=== PATIENT | male | born 1965 | race Caucasian/White ===

== ENCOUNTER 2017-06-20 15:03 | Emergency (ER) | payer OTHER ==
[2017-06-20 17:49] VITALS: BP 143/68
== END 2017-06-20 17:49 | disposition home or self-care (01) ==
LOC: ED 15:03
DX: S43.004A Unspecified dislocation of right shoulder joint, initial encounter (principal); X58.XXXA Exposure to other specified factors, initial encounter; Y93.89 Activity, other specified; Y99.8 Other external cause status; Y92.89 Other specified places as the place of occurrence of the external cause
CPT/HCPCS: J0780; J1170; J2704; Q0092